=== PATIENT | male | born 1950 | race Two or more races ===

== ENCOUNTER 2021-07-05 15:52 | Outpatient (CLI) | payer MEDICARE, MEDICAID ==
--- NOTE | 2021-07-05 16:31 | XRAY Report ---
PROCEDURE: Thoracic Spine 2 View INDICATIONS: PAIN IN BACK TECHNIQUE: 2 views of the thoracic spine were acquired. COMPARISON: None. FINDINGS: THORACIC SPINE: No acute, displaced fracture or retropulsion. The vertebral body heights and interver tebral disc spaces are maintained. SOFT TISSUES: No prevertebral soft tissue thickening. IMPRESSION: 1. No acute osseous abnormality of the thoracic spine. Reviewed by: Alberto Flynn MD on 07/05/2021 4:30 PM PDT Approved by: Alberto Flynn MD on 07/05/2021 4:30 PM PDT Station ID: [id number]
== END 2021-07-05 15:53 | disposition home or self-care (01) ==
LOC: DI 15:52
PROVIDERS: ATTEND Student in an Organized Health Care Education/Training Program
DX: M54.6 Pain in thoracic spine (principal)